=== PATIENT | female | born 1950 | race Caucasian/White ===

== ENCOUNTER → 2017-07-19 | Outpatient (CLI) | payer MEDICARE, OTHER | LOC: RAD 08:30 | DX: R06.00 Dyspnea, unspecified (principal) | CPT/HCPCS: 74230; 92611-GN ==

== ENCOUNTER 2021-05-14 12:12 | Emergency (ER) | payer MEDICARE, OTHER ==
[~2021-05-14 12:12] MED LIST: ACETAMINOPHEN500 MG PO; ALOE VESTA 43% TOP; ALPHAGAN P OP SO5 ML EYEBOTH; ANTACID SUSPEN355 M1 PO; ASPIR 8181 MG PO; CITRACAL + D E1 EACH PO; CRESTOR20 MG PO; DULCOLAX10 MG PR; ELIQUIS2.5 MG PO; FERREX 150150 MG PO; GLUCOPHAGE500 MG PO; IPRAT-ALBUT 0.5-3 ML INH; KEFLEX CAP 500500 MG PO; LATANOPROST 0.7.5 ML EYEBOTH; LEVEMIR FL100 UNIT/1 SQ; LINZESS145 MCG PO; LOPRESSOR 25 MG25 MG PO; NOVOLOG FL100 UNIT/1 SQ; OMEPRAZOLE20 MG PO; SENNA8.6 MG PO; SINGULAIR10 MG PO; SYNTHROID 25 M25 MCG PO; TRADJENTA5 MG PO; XYZAL5 MG PO; ZINC OXIDE28 GM TP
[2021-05-14 14:19] LABS: HEMOGLOBIN 10.8 gm/dl (12.3-15.3); RED BLOOD COUNT 3.78 M/UL (4.00-5.10); WHITE BLOOD COUNT 6.5 K/UL (4.5-11.0)
[2021-05-14] MEDS ORDERED: OMNICEF 300 MG300 MG PO (16:44)
[2021-05-14 17:03] LABS: ADENOVIRUS F 40/41 Not Detected (Negative); ASTROVIRUS Not Detected (Negative); CAMPYLOBACTER Not Detected (Negative); CRYPTOSPORIDIUM Not Detected (Negative); E.COLI 0157 Not Detected (Negative); ENTAMOEBA HISTOLYTICA Not Detected (Negative); ENTEROAGGREGATIVE E.COLI (EAEC Not Detected (Negative); ENTEROPATHOGENIC E.COLI (EPEC) Not Detected (Negative); ENTEROTOXIGENIC E.COLI (ETEC) Not Detected (Negative); GIARDIA LAMBLIA Not Detected (Negative); NOROVIRUS GI/GII Not Detected (Negative); PLESIOMONAS SHIGELLOIDES Not Detected (Negative); ROTOVIRUS A Not Detected (Negative); SALMONELLA Not Detected (Negative); SAPOVIRUS Not Detected (Negative); SHIG/ENTEROINVAS.ECOLI (EIEC) Not Detected (Negative); SHIGA-LIK TOX.PRO.E.COLI (STEC Not Detected (Negative); VIBRIO Not Detected (Negative); VIBRIO CHOLERAE Not Detected (Negative); YERSINIA ENTEROCOLITICA Not Detected (Negative)
[2021-05-14 19:39] LABS: CLOSTRIDIUM DIFFICILE TOX A/B DETECTED (Negative)
== END 2021-05-14 18:39 | disposition home or self-care (01) ==
LOC: ER1 12:12
PROVIDERS: Emergency Medicine; Physician Assistant
DX: N39.0 Urinary tract infection, site not specified (principal); E11.9 Type 2 diabetes mellitus without complications; I10 Essential (primary) hypertension; Z20.822 Contact with and (suspected) exposure to COVID-19; Z90.49 Acquired absence of other specified parts of digestive tract
CPT/HCPCS: 80053; 81001; 85025; 87077; 87086; 87186; 87507; 99284

== ENCOUNTER → 2022-02-09 | Outpatient (CLI) | payer MEDICARE, OTHER ==
[~2022-02-09] MED LIST changes: +OMNICEF 300 MG300 MG PO
== END ==
LOC: LAB 16:51
DX: D37.09 Neoplasm of uncertain behavior of other specified sites of the oral cavity (principal); E11.9 Type 2 diabetes mellitus without complications; I10 Essential (primary) hypertension; E78.00 Pure hypercholesterolemia, unspecified

== ENCOUNTER → 2022-02-25 | Outpatient (CLI) | payer MEDICARE, OTHER | LOC: CT 14:52 | DX: K14.0 Glossitis (principal); K14.9 Disease of tongue, unspecified; R91.8 Other nonspecific abnormal finding of lung field | CPT/HCPCS: 36415; 70490; 82565; Q9967 ==

== ENCOUNTER → 2022-05-03 | Outpatient (CLI) | payer MEDICARE, OTHER | LOC: CT 04-29 10:30 → KOH-I 04-29 10:30 → CT 08:00 | DX: E03.9 Hypothyroidism, unspecified (principal); J98.11 Atelectasis; Z66 Do not resuscitate | CPT/HCPCS: 70490 ==

== ENCOUNTER → 2022-05-13 | Outpatient (CLI) | payer MEDICARE, OTHER | LOC: CT 08:00 | DX: J98.19 Other pulmonary collapse (principal); R91.8 Other nonspecific abnormal finding of lung field | CPT/HCPCS: 71250 ==